=== PATIENT | female | born 1935 | race Caucasian/White ===

== ENCOUNTER 2018-04-04 06:00 | Inpatient (IN) | payer MEDICARE, BC ==
[~2018-04-04 06:00] MED LIST: Acetaminophen 325 MG Tab PO SCH; Lactated Ringers 1,000 ML IV SCH; Lidocaine 1%/Sod Bicarbonate in NS 8.4% 1 ML Syringe IDERM PRN; Pregabalin 25 MG Cap PO SCH; Sodium Chloride 0.9% 10 ML Syringe FLUSH PRN; oxyCODONE ER 10 MG TAB.ER PO SCH
[2018-04-04] MEDS ORDERED: Iodine/Sodium Iodide 2% Tincture 30 ML Bottle ONE (06:07)
[2018-04-04] MEDS ORDERED: fentaNYL 100 MCG/2 ML SDV ONE (06:22)
[2018-04-04] MEDS ORDERED: Propofol 200 MG/20 ML SDV ONE (06:22)
[2018-04-04] MEDS ORDERED: ceFAZolin 1 GM Vial ONE (06:25)
[2018-04-04] MEDS ORDERED: Bupivacaine 0.75% 30 ML SDV ONE (06:27)
[2018-04-04] MEDS ORDERED: EPINEPHrine 1 MG/ML SDV ONE (06:37)
[2018-04-04] MEDS ORDERED: Ropivacaine 0.5% 5 MG/ML 30 ML SDV ONE (06:37)
[2018-04-04] MEDS ORDERED: Bisacodyl 5 MG Tab PO PRN (06:42)
[2018-04-04] MEDS ORDERED: Naloxone 0.4 MG/ML SDV IVPUSH PRN (06:42)
[2018-04-04] MEDS ORDERED: Sennosides 8.6 MG Tab PO PRN (06:42)
[2018-04-04] MEDS ORDERED: Ondansetron 4 MG/2 ML SDV IVPUSH PRN ×2 (06:42→07:58)
[2018-04-04] MEDS ORDERED: Magnesium Hydroxide 400 MG/5 ML Susp 30 ML Cup PO PRN (06:42)
[2018-04-04] MEDS ORDERED: Morphine 2 MG/ML Syringe IVPUSH PRN (06:42)
[2018-04-04] MEDS ORDERED: ceFAZolin 2 GM in Premix Bag 1 BAG IV SCH (07:00)
[2018-04-04] MEDS: Morphine 8 MG, EPINEPHrine 0.3 MG, Cefuroxime 750 MG, Ketorolac 30 MG, Sodium Chloride ... ONE ×15 (07:52→10:30)
[2018-04-04] MEDS: Vancomycin 1 GM SDV ONE ×2 (07:52→08:14)
[2018-04-04] MEDS: ceFAZolin 1 GM Vial ONE ×2 (07:52→08:09)
[2018-04-04] MEDS: Bupivacaine 0.25% 30 ML SDV ONE ×2 (07:52→08:12)
--- NOTE | 2018-04-04 07:54 | PCM.PREANE ---
Preanesthetic Assessment - Procedure Proposed Procedure: Left TKA - Anesthesia/Transfusion/Family Hx Anesthesia History: Prior Anesthesia Without Reaction Family History of Anesthesia Reaction: No Transfusion History: No Prior Transfusion(s) Additional History: History of lumbar spine fusion with no existing radiculopathies. - Review of Systems General: No Symptoms Pulmonary: No Symptoms Cardiovascular: Other (HTN, HLD, DVT 2015, ) Gastrointestinal: No Symptoms Neurological: No Symptoms Other: Reports: Thyroid Problems (hypothyroid) - Physical Assessment NPO Status Date: 04/03/18 NPO Status Time: 21:00 O2 Sat by Pulse Oximetry: 96 Respiratory Rate: 16 Vital Signs: Last Vital Signs Temp 37.1 C 04/04/18 06:00 Pulse 77 04/04/18 06:00 Resp 16 04/04/18 06:00 BP 156/86 H 04/04/18 06:00 Pulse Ox 96 04/04/18 06:00 Height: 1.63 m Weight: 80.286 kg ASA Class: 2 Mental Status: Alert & Oriented x3 Airway Class: Mallampati = 4 (Patient expressed with her back surgery, the anesthesiologist had "a lot of problems placing the tube" She was told the she has a very narrow airway and was sent home with a letter regarding her difficult airway. She did not bring the letter today.) Dentition: Reports: Normal Dentition Thyro-Mental Finger Breadths: 3 Mouth Opening Finger Breadths: 3 ROM/Head Extension: Full Lungs: Clear to Auscultation, Normal Respiratory Effort Cardiovascular: Regular Rate, Regular Rhythm - Lab Values: Laboratory Last Values PT 10.5 SECONDS (9.5-12.1) 04/04/18 06:20 INR 0.96 04/04/18 06:20 MRSA (PCR) Negative 03/23/18 14:40 - Allergies Allergies/Adverse Reactions: Allergies Allergy/AdvReac Type Severity Reaction Status Date / Time nabumetone [From Relafen] Allergy Rash Verified 04/01/18 14:16 oxaprozin [From Daypro] Allergy Edema Verified 04/01/18 14:16 raloxifene [From Evista] Allergy Edema Verified 04/01/18 14:16 Sulfa (Sulfonamide Allergy Cannot Verified 04/01/18 14:16 Antibiotics) Remember sulfamethoxazole Allergy Rash Verified 04/01/18 14:16 [From Bactrim] - Blood Blood Available: No Product(s) Available: None - Anesthesia Plan Pre-Op Medication Ordered: None - Acknowledgements Anesthesia Type Planned: Spinal (with post op adductor canal block ) Pt an Appropriate Candidate for the Planned Anesthesia: Yes Alternatives and Risks of Anesthesia Discussed w Pt/Guardian: Yes Pt/Guardian Understands and Agrees with Anesthesia Plan: Yes PreAnesthesia Questionnaire HEENT History: Reports: Cataract, Glaucoma, Hard of Hearing Cardiovascular History: Reports: Blood Clots/VTE/DVT, High Cholesterol, Hypertension Respiratory History: Reports: None Gastrointestinal History: Reports: Other (See Below) Other Gastrointestinal History: narrow espohgus Genitourinary History: Reports: None SSIS ARCHITECT History: Reports: Musculoskeletal History: Reports: None Psychiatric History: Reports: None Endocrine/Metabolic History: Reports: None, Hypothyroidism Other Hematologic History: blood clot in the left leg Immunologic History: Reports: None Oncologic (Cancer) History: Reports: None Dermatologic History: Reports: None - Past Surgical History Head Surgeries/Procedures: Reports: None HEENT Surgical History: Reports: Eye Surgery, Tonsillectomy Cardiovascular Surgical History: Reports: None Respiratory Surgical History: Reports: None GI Surgical History: Reports: None Female Surgical History: Reports: Hysterectomy Male Surgical History: Reports: None Endocrine Surgical History: Reports: None Neurological Surgical History: Reports: Lumbar Spine Musculoskeletal Surgical History: Reports: None Oncologic Surgical History: Reports: None Dermatological Surgical History: Reports: None - SUBSTANCE USE Smoking Status *Q: Former Smoker Second Hand Smoke Exposure: No Recreational Drug Use History: No - HOME MEDS Home Medications: Home Meds Cholecalciferol (Vitamin D3) [Vitamin D3] 1,000 unit PO DAILY 10/02/15 [History] Fish Oil/Baxter-3 Fatty Acids [Fish Oil 1,000 MG] 1,000 mg PO DAILY 10/02/15 [ History] Folic Acid 2 mg PO DAILY 10/02/15 [History] Latanoprost [Xalatan 0.005% Ophth Soln] 1 drop EYEBOTH BID 10/02/15 [History] Levothyroxine 125 mcg PO DAILY 10/02/15 [History] atorvaSTATin [Lipitor] 10 mg PO DAILY 10/02/15 [History] Acetaminophen [Tylenol Extra Strength] 1,000 mg PO Q6H PRN 04/01/18 [History] Aspirin [Halfprin] 81 mg PO DAILY 04/01/18 [History] - CURRENT (IN HOUSE) MEDS Current Meds: Current Medications Acetaminophen (Tylenol) 975 mg PO ONETIME [facility] Last Admin: 04/04/18 07:01 Dose: 975 mg Bisacodyl (Dulcolax) 5 mg PO DAILY PRN PRN Reason: Constipation Docusate Sodium (Colace) 100 mg PO BID [facility] Famotidine (Pepcid) 20 mg PO Q12H [facility] Lactated Ringer's (Ringers, Lactated) 1,000 mls @ 125 mls/hr IV ASDIRECTED [facility] Last Admin: 04/04/18 06:20 Dose: 125 mls/hr Cefazolin Sodium/Dextrose 2 gm (/ Premix) 50 mls @ 100 mls/hr IV Q8H [facility] Stop: 04/04/18 23:29 Lidocaine/Sodium Bicarbonate (Buffered Lidocaine 1% In Ns 8.4%) 0.25 ml IDERM ONETIME PRN PRN Reason: Prior to IV Start Last Admin: 04/04/18 06:19 Dose: 0.25 ml Magnesium Hydroxide (Milk Of Magnesia) 30 ml PO BID PRN PRN Reason: Constipation Morphine Sulfate (Morphine) 2 mg IVPUSH Q2H PRN PRN Reason: Breakthrough Pain Naloxone HCl (Narcan) 0.1 mg IVPUSH Q5M PRN PRN Reason: Oversedation Ondansetron HCl (Zofran) 4 mg IVPUSH Q6H PRN PRN Reason: Nausea/Vomiting Oxycodone HCl (Oxycontin) 10 mg PO ONETIME [facility] Last Admin: 04/04/18 07:01 Dose: 10 mg Oxycodone/Acetaminophen (Percocet 325-5 Mg) 1 - 2 tab PO Q4H PRN PRN Reason: Pain Pregabalin (Lyrica) 50 mg PO ONETIME [facility] Last Admin: 04/04/18 07:01 Dose: 50 mg Rivaroxaban (Xarelto) 10 mg PO DAILY [facility] Senna (Senna) 8.6 mg PO BID PRN PRN Reason: Constipation Sodium Chloride (Saline Flush) 10 ml FLUSH ASDIRECTED PRN PRN Reason: Keep Vein Open Discontinued Medications Bupivacaine HCl (Marcaine 0.25%) Confirm Administered Dose 30 ml .ROUTE .STK- MED ONE Stop: 04/04/18 06:08 Bupivacaine HCl (Sensorcaine-Mpf 0.75%) Confirm Administered Dose 30 ml .ROUTE .STK-MED ONE Stop: 04/04/18 06:28 Cefazolin Sodium (Ancef) Confirm Administered Dose 2 gm .ROUTE .STK-MED ONE Stop: 04/04/18 06:08 Cefazolin Sodium (Ancef) Confirm Administered Dose 2 gm .ROUTE .STK-MED ONE Stop: 04/04/18 06:26 Morphine Sulfate 8 mg/Epinephrine HCl 0.3 mg/Cefuroxime Sodium 750 mg/Ketorolac Tromethamine 30 mg/Sodium Chloride 27.9 ml 0 mg .XX ONETIME ONE Stop: 04/04/18 06:38 Epinephrine HCl (Adrenalin) Confirm Administered Dose 1 mg .ROUTE .STK-MED ONE Stop: 04/04/18 06:38 Fentanyl (Sublimaze) Confirm Administered Dose 100 mcg .ROUTE .STK-MED ONE Stop: 04/04/18 06:23 Iodine (Iodine 2% Mild Tincture) Confirm Administered Dose 30 ml .ROUTE .STK- MED ONE Stop: 04/04/18 06:08 Propofol (Diprivan 20 Ml) Confirm Administered Dose 400 mg .ROUTE .STK-MED ONE Stop: 04/04/18 06:23 Ropivacaine (Naropin 0.5%) Confirm Administered Dose 30 ml .ROUTE .STK-MED ONE Stop: 04/04/18 06:38 Tranexamic Acid (Cyklokapron) Confirm Administered Dose 1,000 mg .ROUTE .STK- MED ONE Stop: 04/04/18 06:08 Vancomycin HCl (Vancomycin) Confirm Administered Dose 1 gm .ROUTE .STK-MED ONE Stop: 04/04/18 06:08
[2018-04-04] MEDS ORDERED: Meperidine PF 50 MG/ML Syringe IVPUSH PRN (07:58)
[2018-04-04] MEDS ORDERED: diphenhydrAMINE 50 MG/ML SDV IVPUSH PRN (07:58)
[2018-04-04] MEDS ORDERED: fentaNYL 100 MCG/2 ML SDV IVPUSH PRN (07:58)
[2018-04-04] MEDS ORDERED: Ondansetron 4 MG/2 ML SDV ONE (08:31)
[2018-04-04] MEDS ORDERED: Ketorolac 30 MG/ML SDV ONE (08:38)
--- NOTE | 2018-04-04 08:53 | PCM.POSTAN ---
POST ANESTHESIA ASSESSMENT - MENTAL STATUS Mental Status: Alert, Oriented - VITAL SIGNS Pulse Rate: 66 SaO2: 95 Resp Rate: 19 Blood Pressure: 120/62 Temperature: 36.4 C - RESPIRATORY Respiratory Status: Respiratory Rate WNL, Airway Patent, O2 Saturation Stable, Supplemental Oxygen - CARDIOVASCULAR CV Status: Pulse Rate WNL, Blood Pressure Stable - GASTROINTESTINAL GI Status: No Symptoms - PAIN Pain Score: 0 - POST OP HYDRATION Hydration Status: Adequate & Stable
--- NOTE | 2018-04-04 09:22 | PCM.SN ---
- Free Text/Narrative Note: Left selective femoral nerve block at the adductor canal for post-procedure pain control Time Out: 900 Start: 904 End: 907 Chart reviewed. Consent signed. Questions answered. Appropriate monitors applied. Time out performed. Left mid-shaft femur evaluated with ultrasound. Scanning medially femur, I was able to identify the femoral artery in the adductor canal. The saphenous nerve was lateral to the artery. The skin was prepped lateral to the ultrasound probe with chlorahexadine. The 21ga 4 insulated block needle was inserted under direct ultrasound guidance into the adductor canal. 20mL of 0.5% ropivacaine with 1:200,000 epinephrine was injected cirmcumferentially about the nerve with intermittent negative aspiration every 5mL. Patient tolerated the procedure well. See picture on progress note and vital signs on nurses notes. Block completed postoperatively. Naveen Luis CRNA
--- NOTE | 2018-04-04 09:45 | CR ---
Left knee: AP and lateral views of the left knee were obtained. Comparison: Prior left knee exam of 09/20/12. Knee prosthesis is seen. Components are aligned. Underlying bony structures are intact. Soft tissue air is noted from the surgical procedure. Impression: 1. Satisfactory postop radiographic appearance of recently placed left knee prosthesis. Diagnostic code #2
[2018-04-04] MEDS: Levothyroxine 125 MCG Tab PO SCH (10:43)
[2018-04-04] MEDS: Cholecalciferol (Vitamin D3) 1,000 Unit Tab PO SCH (10:44)
[2018-04-04] MEDS: Simvastatin 10 MG Tab PO SCH (10:44)
[2018-04-04] MEDS: Folic Acid 1 MG Tab PO SCH (10:44)
[2018-04-04] MEDS: Famotidine 20 MG Tab PO SCH ×2 (10:45→18:30)
[2018-04-04] MEDS: LATANOPROST 0.005% EYEBOTH SCH ×2 (10:46→20:18)
--- NOTE | 2018-04-04 10:52 | PCM.OPNOTE ---
- General Post-Op/Procedure Note Date of Surgery/Procedure: 04/04/18 Operative Procedure(s): left total knee arthroplasty Pre Op Diagnosis: left knee osteoarthrosis Post-Op Diagnosis: Same Anesthesia Technique: Local, MAC, Spinal Primary Surgeon: Alexi Peng Anesthesia Provider: Naveen Luis Parimutuel Cashier: Hien Sosa Parimutuel Cashier: Rody Arguelles EBGuerita in mLs: 10 Complications: None Condition: Good Free Text/Narrative:: Intake & Output 04/03/18 04/04/18 04/04/18 22:59 06:59 14:59 Intake Total 100 Output Total 500 Balance -400
--- NOTE | 2018-04-04 11:43 | OR ---
DATE OF OPERATION: 04/04/2018 SURGEON: Alexi Peng MD OPERATION PERFORMED: Left total knee arthroplasty. PREOPERATIVE DIAGNOSIS: Left knee osteoarthrosis. POSTOPERATIVE DIAGNOSIS: Left knee osteoarthrosis. ANESTHESIA: Local MAC with spinal. ANESTHESIA PROVIDER: Naveen Luis. ASSISTANTS: 1. Hien Sosa PA-C. 2. Rody Arguelles LPN. ESTIMATED BLOOD LOSS: 10 mL. COMPLICATIONS: None. CONDITION: Stable. IMPLANTS: 1. Sola size 5 PS femur. 2. Sola size 5 [place] tibial baseplate. 3. Sola size 5 9-mm PS X3 polyethylene. 4. [place] size 5 29 x 9 mm asymmetric patella. DESCRIPTION OF PROCEDURE: The patient was identified in the preop holding area. Proper site was marked and identified by the surgeon. The patient was taken back to the operating theater. After adequate anesthesia, the patient's left lower extremity had a nonsterile tourniquet applied and it was then sterilely prepped and draped in the usual sterile fashion. OR timeout was performed. The patient received 2 grams IV Ancef. At this time, left lower extremity was exsanguinated. Tourniquet was insufflated to 300 mmHg. Standard medial parapatellar incision was made. Medial parapatellar arthrotomy was created. Deep fibers of the MCL were raised and anterior fat pad was resected. At this time, attention was turned to the patella. Patella measured a 22 and it was resected to a 13 for a 29 x 9 mm patella. Drill holes were then drilled and found to be in adequate position. The drill was then drilled in the distal femur and the intramedullary distal femoral cutting guide was then placed. 10 mm was resected off the distal femur and was found to be an adequate resection. Sizing guide was placed. It was found to be a [place] size 5 PS femur that was shown on the implant record at the beginning of this dictation. The drill holes were drilled for the epicondylar axis using Whitesides line and epicondyles as reference. At this time, the 4-in-1 cutting block was placed. An anterior posterior and anterior and posterior chamfer cuts were then completed. The correct size box cut was then placed and the box cut was completed and found to be an adequate resection. Attention was turned to the tibia. The posterior medial lateral retractors were placed. The extramedullary tibial guide was placed. It was placed in the old footprint of the ACL. It was aligned with the center of the ankle and 0 degrees of slope, 9 mm was then resected off the unaffected lateral side. There was found to be an acceptable reduction. At this time, posterior osteophytes were removed along with medial and lateral meniscus. A trial implant was placed with a correct sized tibia that was mentioned at the beginning of the dictation. A Sola size 5 9-mm PS X3 polyethylene was then placed. The patient's knee was brought through range of motion. The patella was tracking centrally and was stable to varus and valgus stress. Alignment was found to be roughly at 0 degrees. At this time, cement was mixed on the back table. The tibia was stamped and drilled in proper rotation. All cut surfaces were irrigated with pulse lavage irrigation with Ancef and then completely dried. Once this was completed, then the cement was ready. The universal tibial base plate was cemented in place. Next, the Sola size 5 PS femur cemented into place, and the [place]ome size 5 9-mm PS X3 polyethylene was placed. The patient's knee was brought into full extension. Excess cement was removed. The patella was then cemented in place at this time. Tourniquet was deflated. One liter dilute Betadine solution was irrigated through the knee along with 3 L of pulse lavage irrigation with Ancef. Periarticular injection was then completed. The patient's knee was brought through a range of motion. Once the cement had time to set up and it was found to be stable to varus valgus stress, the patella was tracking centrally with full range of motion. At this time, a #2 barbed suture was used for closure of the medial parapatellar arthrotomy. Topical tranexamic acid was placed. 2-0 Vicryl was used subcutaneously, a running 3-0 Monocryl was used subcuticularly. The patient tolerated the procedure well and was sent to the PACU in stable condition. MMODAL /[id number]
[2018-04-04] MEDS: Acetaminophen/oxyCODONE 325-5 MG Tab PO PRN ×3 (14:42→22:39)
[2018-04-04] MEDS: ceFAZolin 2 GM in Premix Bag 1 BAG IV SCH ×2 (14:43→22:35)
[2018-04-04] MEDS: Docusate Sodium 100 MG Cap PO SCH (20:18)
[2018-04-05] MEDS: Acetaminophen/oxyCODONE 325-5 MG Tab PO PRN ×4 (03:41→16:21)
[2018-04-05] MEDS: ceFAZolin 2 GM in Premix Bag 1 BAG IV SCH (06:06)
[2018-04-05] MEDS: Levothyroxine 125 MCG Tab PO SCH (06:06)
[2018-04-05] MEDS: Famotidine 20 MG Tab PO SCH ×2 (06:06→22:40)
--- NOTE | 2018-04-05 07:00 | PCM.CONS ---
H&P History of Present Illness - General Date of Service: 04/05/18 Admit Problem/Dx: Admission Diagnosis/Problem Admission Diagnosis/Problem Osteoarthritis of knee Source of Information: Patient, Old Records, Provider, RN, RN Notes Reviewed History Limitations: Reports: No Limitations - History of Present Illness Initial Comments - Free Text/Narative: Pam Murphy is a 83 yo female patient of Dr. Peng who is post-operative day 1 of left TKA. Hospital medicine was consulted for post-operative medical care. At this time she is sitting in the chair. Pain is controlled. She denies any chest pain, shortness of breath, or palpitations. She did have some nausea and vomiting which resolved with a scopolamine patch and zofran. She also had some difficulty with urination. She carries a history of: Hypothyroid, HLD, HTN, Phlebitis with DVT in 2014, osteopenia, C. difficile infection in 2001 with stool transfer, hx/o of DVT in September 2015 and October 2015. She is a former smoker. She is a full code. Her primary care provider is Dr. Dandre Sibley. Left Knee Pain Score (Numeric/FACES): 3 - Related Data Allergies/Adverse Reactions: Allergies Allergy/AdvReac Type Severity Reaction Status Date / Time nabumetone [From Relafen] Allergy Rash Verified 04/01/18 14:16 oxaprozin [From Daypro] Allergy Edema Verified 04/01/18 14:16 raloxifene [From Evista] Allergy Edema Verified 04/01/18 14:16 Sulfa (Sulfonamide Allergy Cannot Verified 04/01/18 14:16 Antibiotics) Remember sulfamethoxazole Allergy Rash Verified 04/01/18 14:16 [From Bactrim] Home Medications: Home Meds Cholecalciferol (Vitamin D3) [Vitamin D3] 1,000 unit PO DAILY 10/02/15 [History] Folic Acid 2 mg PO DAILY 10/02/15 [History] Latanoprost [Xalatan 0.005% Ophth Soln] 1 drop EYEBOTH BID 10/02/15 [History] Levothyroxine 125 mcg PO DAILY 10/02/15 [History] atorvaSTATin [Lipitor] 10 mg PO DAILY 10/02/15 [History] Aspirin [Halfprin] 81 mg PO DAILY 04/01/18 [History] Acetaminophen [Tylenol Extra Strength] 1,000 mg PO Q6H PRN #0 04/04/18 [Rx] Acetaminophen/oxyCODONE [Percocet 325-5 MG] 1 - 2 tab PO Q6H PRN #60 tablet 09/11 [Rx] Bisacodyl [Dulcolax] 5 mg PO DAILY PRN tablet 04/04/18 [Rx] Docusate Sodium [Colace] 100 mg PO BID cap 04/04/18 [Rx] Famotidine [Pepcid] 20 mg PO Q12H tablet 04/04/18 [Rx] Magnesium Hydroxide [Milk of Magnesia] 30 ml PO BID PRN cup 04/04/18 [Rx] Rivaroxaban [Xarelto] 10 mg PO DAILY #42 tablet 04/04/18 [Rx] Sennosides [Senna] 8.6 mg PO BID PRN tablet 04/04/18 [Rx] Ondansetron [Ondansetron ODT] 4 mg PO Q6HR PRN 04/05/18 [History] Past Medical History HEENT History: Reports: Cataract, Glaucoma, Hard of Hearing Cardiovascular History: Reports: Blood Clots/VTE/DVT, High Cholesterol, Hypertension Respiratory History: Reports: None Gastrointestinal History: Reports: Other (See Below) Other Gastrointestinal History: narrow espohgus Genitourinary History: Reports: None ANIMATION ARTIST History: Reports: Musculoskeletal History: Reports: None Psychiatric History: Reports: None Endocrine/Metabolic History: Reports: None, Hypothyroidism Other Hematologic History: blood clot in the left leg Immunologic History: Reports: None Oncologic (Cancer) History: Reports: None Dermatologic History: Reports: None - Past Surgical History Head Surgeries/Procedures: Reports: None HEENT Surgical History: Reports: Eye Surgery, Tonsillectomy Cardiovascular Surgical History: Reports: None Respiratory Surgical History: Reports: None GI Surgical History: Reports: None Female Surgical History: Reports: Hysterectomy Male Surgical History: Reports: None Endocrine Surgical History: Reports: None Neurological Surgical History: Reports: Lumbar Spine Musculoskeletal Surgical History: Reports: None Oncologic Surgical History: Reports: None Dermatological Surgical History: Reports: None Social & Family History - Tobacco Use Smoking Status *Q: Former Smoker Used Tobacco, but Quit: Yes Month/Year Tobacco Last Used: 1979 Second Hand Smoke Exposure: No - Caffeine Use Caffeine Use: Reports: Coffee - Recreational Drug Use Recreational Drug Use: No H&P Review of Systems - Review of Systems: Review Of Systems: See Below General: Reports: No Symptoms HEENT: Reports: No Symptoms Pulmonary: Reports: No Symptoms Cardiovascular: Reports: No Symptoms Gastrointestinal: Reports: No Symptoms Genitourinary: Reports: No Symptoms Musculoskeletal: Reports: Joint Pain Skin: Reports: No Symptoms Psychiatric: Reports: No Symptoms Neurological: Reports: No Symptoms Hematologic/Lymphatic: Reports: No Symptoms Immunologic: Reports: No Symptoms Exam - Exam Exam: See Below - Vital Signs Vital Signs: Last Vital Signs Temp 97.9 F 04/04/18 15:32 Pulse 59 L 04/04/18 20:10 Resp 16 04/04/18 20:10 BP 125/60 04/04/18 20:10 Pulse Ox 92 L 04/04/18 20:10 Weight: 177 lb - Exam Quality Assessment: DVT Prophylaxis General: Alert, Oriented, Cooperative. No: Mild Distress HEENT: Conjunctiva Clear, EACs Clear, EOMI, Hearing Intact, Mucosa Moist & Nicholls , Posterior Pharynx Clear, PERRLA Neck: Supple, Trachea Midline. No: JVD Lungs: Clear to Auscultation, Normal Respiratory Effort Cardiovascular: Regular Rate, Regular Rhythm GI/Abdominal Exam: Normal Bowel Sounds, Soft, Non-Tender, No Organomegaly, No Distention, No Abnormal Bruit, No Mass, Pelvis Stable (Female) Exam: Deferred Rectal (Female) Exam: Deferred Back Exam: Normal Inspection, Full Range of Motion, NT Extremities: No Pedal Edema, Normal Capillary Refill, Leg Pain, Limited Range of Motion, Other (Bandage in place on left knee. Bandage is dry and intact. No drainage. ) Peripheral Pulses: 2+: Radial (L), Radial (R), Posterior Tibial (L), Posterior Tibial (R), Dorsalis Pedis (L), Dorsalis Pedis (R) Skin: Warm, Dry, Intact Neurological: Cranial Nerves Intact (grossly ) Neuro Extensive - Mental Status: Alert, Oriented x3, Normal Mood/Affect, Normal Cognition Neuro Extensive - Motor, Sensory, Reflexes: CN II-XII Intact, Normal Gait, Normal Reflexes Psychiatric: Alert, Normal Affect, Normal Mood - Patient Data Lab Results Last 24 hrs: Laboratory Results - last 24 hr 04/05/18 Range/Units 06:18 WBC 9.76 (3.98-10.04) K/mm3 RBC 4.04 (3.98-5.22) M/mm3 Hgb 12.7 (11.2-15.7) gm/L Hct 38.1 (34.1-44.9) % MCV 94.3 (79.4-94.8) fl MCH 31.4 (25.6-32.2) pg MCHC 33.3 (32.2-35.5) g/dl RDW Std Deviation 43.5 (36.4-46.3) fL Plt Count 169 L (182-369) K/mm3 MPV 9.8 (9.4-12.3) fl Result Diagrams: 04/05/18 06:18 04/05/18 06:18 Consult PN Assessment/Plan POD#: 1 Procedures: Procedures DXA BONE DENSITY AXIAL (02/06/16) EMERGENCY DEPT VISIT (10/02/15) (1) S/P total knee arthroplasty SNOMED Code(s): 0000847521970, 614963030, 0064695081091 Code(s): Z96.659 - PRESENCE OF UNSPECIFIED ARTIFICIAL KNEE JOINT Priority: High Current Visit: Yes Qualifiers: Laterality: left Qualified Code(s): Z96.652 - Presence of left artificial knee joint (2) Osteoarthritis SNOMED Code(s): 934914330 Code(s): M19.90 - UNSPECIFIED OSTEOARTHRITIS, UNSPECIFIED SITE Priority: High Current Visit: Yes Qualifiers: Osteoarthritis location: knee Osteoarthritis type: primary Laterality: left Qualified Code(s): M17.12 - Unilateral primary osteoarthritis, left knee (3) HLD (hyperlipidemia) SNOMED Code(s): 66769472 Code(s): E78.5 - HYPERLIPIDEMIA, UNSPECIFIED Priority: Medium Current Visit: No Qualifiers: Hyperlipidemia type: unspecified Qualified Code(s): E78.5 - Hyperlipidemia , unspecified (4) HTN (hypertension) SNOMED Code(s): 42576957 Code(s): I10 - ESSENTIAL (PRIMARY) HYPERTENSION Priority: Medium Current Visit: No Qualifiers: Hypertension type: unspecified Qualified Code(s): I10 - Essential (primary ) hypertension (5) Hypothyroidism SNOMED Code(s): 69668254 Code(s): E03.9 - HYPOTHYROIDISM, UNSPECIFIED Priority: Medium Current Visit: No Qualifiers: Hypothyroidism type: unspecified Qualified Code(s): E03.9 - Hypothyroidism , unspecified (6) H/O Clostridium difficile infection SNOMED Code(s): 984144354, 654916911 Code(s): Z86.19 - PERSONAL HISTORY OF OTHER INFECTIOUS AND PARASITIC DISEASES Priority: Medium Current Visit: No (7) History of venous thromboembolism SNOMED Code(s): 075117447 Code(s): Z86.718 - PERSONAL HISTORY OF OTHER VENOUS THROMBOSIS AND EMBOLISM Priority: Medium Current Visit: No (8) Nausea & vomiting SNOMED Code(s): 87993817 Code(s): R11.2 - NAUSEA WITH VOMITING, UNSPECIFIED Priority: Medium Current Visit: Yes Qualifiers: Vomiting type: unspecified Vomiting Intractability: unspecified Qualified Code(s): R11.2 - Nausea with vomiting, unspecified Problem List Initiated/Reviewed/Updated: Yes Plan: I/P: Acute: S/P left total knee arthroplasty - post-operative day 1 -DVT prophylaxis and pain management per primary care team -PT/OT -IS/RT -Monitor oxygen saturation -Titrate oxygen as needed -Vital signs stable -Monitor labs -Pre-operative Hgb was 14.7, now 12.7 -Preo-operative GFR was 68, now 60 Osteoarthritis of left knee -Pain management per primary care team Nausea and vomiting -Resovled with scopolamine patch and zofran -Home zofran Rx Urinary retention -Has had minimal output since surgery ("only drops") -Nursing reports almost 1L PO intake -20mg lasix given -Patient reports feeling uncomfortable -Nursing to straight cath patient per protocol Chronic: HLD HTN Hypothyroid Phlebitis with DVT in 2014 Hx/o C. 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 Her PCP is Dr Dandre Sibley Thank you for allowing us to participate in the care of this patient!! Overall Pam is doing quite well, although she still hasn't urinated. She has been working with PT/OT. Labs look good, as do vital signs. She has been ambulating. She will be cleared for discharge pending ability to urinate. Requesting Provider: Dr. Peng Date Consult Requested: 04/04/18 Reason for Consult: Post-operative medical care Patient History Reviewed: Yes Admission H&P Reviewed: Yes Time Spent (in minutes): 45
--- NOTE | 2018-04-05 08:08 | PCM.SURGPN ---
- General Info Date of Service: 04/05/18 POD#: 1 Functional Status: Reports: Pain Controlled, Tolerating Diet, Ambulating, Urinating, Incentive Spirometry, Other (The pt states she ambulated in her room yesterday and this morning. The pt's daughter thinks the pt is doing well.) - Patient Data Vitals - Most Recent: Last Vital Signs Temp 98.6 F 04/05/18 03:45 Pulse 68 04/05/18 03:45 Resp 14 04/05/18 03:45 BP 111/56 L 04/05/18 03:45 Pulse Ox 93 L 04/05/18 06:39 Weight - Most Recent: 177 lb I&O - Last 24 Hours: Intake & Output 04/04/18 04/05/18 04/05/18 22:59 06:59 14:59 Intake Total 760 200 Output Total 350 0 Balance 410 200 Lab Results Last 24 Hrs: Laboratory Results - last 24 hr 04/05/18 04/05/18 Range/Units 06:18 06:18 WBC 9.76 (3.98-10.04) K/mm3 RBC 4.04 (3.98-5.22) M/mm3 Hgb 12.7 (11.2-15.7) gm/L Hct 38.1 (34.1-44.9) % MCV 94.3 (79.4-94.8) fl MCH 31.4 (25.6-32.2) pg MCHC 33.3 (32.2-35.5) g/dl RDW Std Deviation 43.5 (36.4-46.3) fL Plt Count 169 L (182-369) K/mm3 MPV 9.8 (9.4-12.3) fl Sodium 140 (136-145) mEq/L Potassium 3.9 (3.5-5.1) mEq/L Chloride 106 (98-107) mEq/L Carbon Dioxide 24 (21-32) mEq/L Anion Gap 13.9 (5-15) BUN 15 (7-18) mg/dL Creatinine 0.9 (0.55-1.02) mg/dL Est Cr Clr Drug Dosing 39.46 mL/min Estimated GFR (MDRD) 60 (>60) mL/min BUN/Creatinine Ratio 16.7 (14-18) Glucose 113 (83-115) mg/dL Calcium 8.3 L (8.5-10.1) mg/dL Total Bilirubin 0.8 (0.2-1.0) mg/dL AST 15 (15-37) U/L ALT 17 (14-59) U/L Alkaline Phosphatase 60 (46-116) U/L Total Protein 5.8 L (6.4-8.2) g/dl Albumin 2.9 L (3.4-5.0) g/dl Globulin 2.9 gm/dL Albumin/Globulin Ratio 1.0 (1-2) Med Orders - Current: Current Medications Bisacodyl (Dulcolax) 5 mg PO DAILY PRN PRN Reason: Constipation Cholecalciferol (Vitamin D3) 1,000 units PO DAILY [facility] Last Admin: 04/04/18 10:44 Dose: 1,000 units Diphenhydramine HCl (Benadryl) 25 mg IVPUSH Q6H PRN PRN Reason: Pruritis Docusate Sodium (Colace) 100 mg PO BID [facility] Last Admin: 04/04/18 20:18 Dose: 100 mg Famotidine (Pepcid) 20 mg PO Q12H [facility] Last Admin: 04/05/18 06:06 Dose: 20 mg Folic Acid (Folic Acid) 2 mg PO DAILY [facility] Last Admin: 04/04/18 10:44 Dose: 2 mg Latanoprost (Xalatan 0.005% Ophth Soln) 0 ml EYEBOTH BID [facility] Last Admin: 04/04/18 20:18 Dose: 1 drop Levothyroxine Sodium (Levothyroxine) 125 mcg PO ACBRK [facility] Last Admin: 04/05/18 06:06 Dose: 125 mcg Magnesium Hydroxide (Milk Of Magnesia) 30 ml PO BID PRN PRN Reason: Constipation Morphine Sulfate (Morphine) 2 mg IVPUSH Q2H PRN PRN Reason: Breakthrough Pain Naloxone HCl (Narcan) 0.1 mg IVPUSH Q5M PRN PRN Reason: Oversedation Ondansetron HCl (Zofran) 4 mg IVPUSH Q6H PRN PRN Reason: Nausea/Vomiting Ondansetron HCl (Zofran) 4 mg IVPUSH ONETIME PRN PRN Reason: Nausea/Vomiting Oxycodone/Acetaminophen (Percocet 325-5 Mg) 1 - 2 tab PO Q4H PRN PRN Reason: Pain Last Admin: 04/05/18 07:47 Dose: 2 tab Rivaroxaban (Xarelto) 10 mg PO DAILY [facility] Senna (Senna) 8.6 mg PO BID PRN PRN Reason: Constipation Simvastatin (Zocor) 10 mg PO DAILY [facility] Last Admin: 04/04/18 10:44 Dose: 10 mg Sodium Chloride (Saline Flush) 10 ml FLUSH ASDIRECTED PRN PRN Reason: Keep Vein Open Discontinued Medications Acetaminophen (Tylenol) 975 mg PO ONETIME [facility] Last Admin: 04/04/18 07:01 Dose: 975 mg Bupivacaine HCl (Marcaine 0.25%) Confirm Administered Dose 30 ml .ROUTE .STK- MED ONE Stop: 04/04/18 06:08 Last Admin: 04/04/18 08:12 Dose: 30 ml Bupivacaine HCl (Sensorcaine-Mpf 0.75%) Confirm Administered Dose 30 ml .ROUTE .STK-MED ONE Stop: 04/04/18 06:28 Cefazolin Sodium (Ancef) Confirm Administered Dose 2 gm .ROUTE .STK-MED ONE Stop: 04/04/18 06:08 Last Admin: 04/04/18 08:09 Dose: 2 gm Cefazolin Sodium (Ancef) Confirm Administered Dose 2 gm .ROUTE .STK-MED ONE Stop: 04/04/18 06:26 Morphine Sulfate 8 mg/Epinephrine HCl 0.3 mg/Cefuroxime Sodium 750 mg/Ketorolac Tromethamine 30 mg/Sodium Chloride 27.9 ml 0 mg .XX ONETIME ONE Stop: 04/04/18 06:38 Last Admin: 04/04/18 10:30 Dose: Not Given Epinephrine HCl (Adrenalin) Confirm Administered Dose 1 mg .ROUTE .STK-MED ONE Stop: 04/04/18 06:38 Fentanyl (Sublimaze) Confirm Administered Dose 100 mcg .ROUTE .STK-MED ONE Stop: 04/04/18 06:23 Fentanyl (Sublimaze) 50 mcg IVPUSH Q5M PRN PRN Reason: Pain Lactated Ringer's (Ringers, Lactated) 1,000 mls @ 125 mls/hr IV ASDIRECTED [facility] Last Admin: 04/04/18 06:20 Dose: 125 mls/hr Cefazolin Sodium/Dextrose 2 gm (/ Premix) 50 mls @ 100 mls/hr IV Q8H [facility] Stop: 04/04/18 23:29 Last Admin: 04/04/18 10:45 Dose: Not Given Cefazolin Sodium/Dextrose 2 gm (/ Premix) 50 mls @ 100 mls/hr IV Q8H [facility] Stop: 04/05/18 06:59 Last Admin: 04/05/18 06:06 Dose: 100 mls/hr Iodine (Iodine 2% Mild Tincture) Confirm Administered Dose 30 ml .ROUTE .STK- MED ONE Stop: 04/04/18 06:08 Last Admin: 04/04/18 08:05 Dose: 18 ml Ketorolac Tromethamine (Toradol) Confirm Administered Dose 30 mg .ROUTE .STK- MED ONE Stop: 04/04/18 08:39 Lidocaine/Sodium Bicarbonate (Buffered Lidocaine 1% In Ns 8.4%) 0.25 ml IDERM ONETIME PRN PRN Reason: Prior to IV Start Last Admin: 04/04/18 06:19 Dose: 0.25 ml Meperidine HCl (Demerol) 12.5 mg IVPUSH ONETIME PRN PRN Reason: Shivering Ondansetron HCl (Zofran) Confirm Administered Dose 4 mg .ROUTE .STK-MED ONE Stop: 04/04/18 08:32 Oxycodone HCl (Oxycontin) 10 mg PO ONETIME [facility] Last Admin: 04/04/18 07:01 Dose: 10 mg Pregabalin (Lyrica) 50 mg PO ONETIME [facility] Last Admin: 04/04/18 07:01 Dose: 50 mg Propofol (Diprivan 20 Ml) Confirm Administered Dose 400 mg .ROUTE .STK-MED ONE Stop: 04/04/18 06:23 Ropivacaine (Naropin 0.5%) Confirm Administered Dose 30 ml .ROUTE .STK-MED ONE Stop: 04/04/18 06:38 Tranexamic Acid (Cyklokapron) Confirm Administered Dose 1,000 mg .ROUTE .STK- MED ONE Stop: 04/04/18 06:08 Last Admin: 04/04/18 08:18 Dose: 1,000 mg Vancomycin HCl (Vancomycin) Confirm Administered Dose 1 gm .ROUTE .STK-MED ONE Stop: 04/04/18 06:08 Last Admin: 04/04/18 08:14 Dose: 1 gm - Exam Wound/Incisions: Dressing Dry and Intact General: Alert, Cooperative, No Acute Distress Lungs: Normal Respiratory Effort Extremities: Other (NVS intact for LLE. Lily's negative.) - Problem List Review Problem List Initiated/Reviewed/Updated: Yes - My Orders Last 24 Hours: Active Orders 24 hr Category Date Time Status Communication Order [RC] ROUTINE Care 04/04/18 07:58 Active Notify Provider [RC] ASDIRECTED Care 04/04/18 07:58 Active Pulse Oximetry [RC] ASDIRECTED Care 04/04/18 07:58 Active Regular Diet [DIET] Diet 04/04/18 Lunch Active Cholecalciferol (Vitamin D3) [Vitamin D3] Med 04/04/18 09:00 Active 1,000 units PO DAILY Docusate Sodium [Colace] Med 04/04/18 21:00 Active 100 mg PO BID Folic Acid Med 04/04/18 09:00 Active 2 mg PO DAILY Latanoprost [Xalatan 0.005% Ophth Soln] Med 04/04/18 09:00 Active 0 ml EYEBOTH BID Levothyroxine Med 04/04/18 08:30 Active 125 mcg PO ACBRK Ondansetron [Zofran] Med 04/04/18 07:58 Active 4 mg IVPUSH ONETIME PRN Rivaroxaban [Xarelto] Med 04/05/18 09:00 Active 10 mg PO DAILY Simvastatin [Zocor] Med 04/04/18 09:00 Active 10 mg PO DAILY diphenhydrAMINE [Benadryl] Med 04/04/18 07:58 Active 25 mg IVPUSH Q6H PRN Medication Orders Bisacodyl (Dulcolax) 5 mg PO DAILY PRN PRN Reason: Constipation Cholecalciferol (Vitamin D3) 1,000 units PO DAILY [facility] Last Admin: 04/04/18 10:44 Dose: 1,000 units Diphenhydramine HCl (Benadryl) 25 mg IVPUSH Q6H PRN PRN Reason: Pruritis Docusate Sodium (Colace) 100 mg PO BID [facility] Last Admin: 04/04/18 20:18 Dose: 100 mg Famotidine (Pepcid) 20 mg PO Q12H [facility] Last Admin: 04/05/18 06:06 Dose: 20 mg Admin: 04/04/18 18:30 Dose: 20 mg Admin: 04/04/18 10:45 Dose: Not Given Folic Acid (Folic Acid) 2 mg PO DAILY [facility] Last Admin: 04/04/18 10:44 Dose: 2 mg Latanoprost (Xalatan 0.005% Ophth Soln) 0 ml EYEBOTH BID [facility] Last Admin: 04/04/18 20:18 Dose: 1 drop Admin: 04/04/18 10:46 Dose: Levothyroxine Sodium (Levothyroxine) 125 mcg PO ACBRK [facility] Last Admin: 04/05/18 06:06 Dose: 125 mcg Admin: 04/04/18 10:43 Dose: 125 mcg Magnesium Hydroxide (Milk Of Magnesia) 30 ml PO BID PRN PRN Reason: Constipation Morphine Sulfate (Morphine) 2 mg IVPUSH Q2H PRN PRN Reason: Breakthrough Pain Naloxone HCl (Narcan) 0.1 mg IVPUSH Q5M PRN PRN Reason: Oversedation Ondansetron HCl (Zofran) 4 mg IVPUSH Q6H PRN PRN Reason: Nausea/Vomiting Ondansetron HCl (Zofran) 4 mg IVPUSH ONETIME PRN PRN Reason: Nausea/Vomiting Oxycodone/Acetaminophen (Percocet 325-5 Mg) 1 - 2 tab PO Q4H PRN PRN Reason: Pain Last Admin: 04/05/18 07:47 Dose: 2 tab Admin: 04/05/18 03:41 Dose: 2 tab Admin: 04/04/18 22:39 Dose: 2 tab Admin: 04/04/18 18:30 Dose: 2 tab Admin: 04/04/18 14:42 Dose: 2 tab Rivaroxaban (Xarelto) 10 mg PO DAILY [facility] Senna (Senna) 8.6 mg PO BID PRN PRN Reason: Constipation Simvastatin (Zocor) 10 mg PO DAILY [facility] Last Admin: 04/04/18 10:44 Dose: 10 mg Sodium Chloride (Saline Flush) 10 ml FLUSH ASDIRECTED PRN PRN Reason: Keep Vein Open - Assessment Assessment (Free Text/Narrative):: POD#1 - s/p left TKA - Plan Plan (Free Text/Narrative):: 1. Discharge to home today if therapy goals met and cleared by Hospitalist service. 2. The pt's daughter will be staying with the pt this week. 3. Hgb 12.7. 4. XarelDesire jakcson, frequent mobility for VTE prophylaxis. The pt's case was discussed with Dr. Peng.
[2018-04-05] MEDS: Docusate Sodium 100 MG Cap PO SCH ×2 (08:18→22:40)
[2018-04-05] MEDS: Folic Acid 1 MG Tab PO SCH (08:18)
[2018-04-05] MEDS: Simvastatin 10 MG Tab PO SCH (08:18)
[2018-04-05] MEDS: Rivaroxaban 10 MG Tab PO SCH (08:18)
[2018-04-05] MEDS: LATANOPROST 0.005% EYEBOTH SCH ×2 (08:18→22:40)
[2018-04-05] MEDS: Cholecalciferol (Vitamin D3) 1,000 Unit Tab PO SCH (08:18)
[2018-04-05] MEDS ORDERED: Scopolamine 1.5 MG Transdermal Patch TRDERM PRN (10:01)
[2018-04-05] MEDS ORDERED: Remove Patch SCOPE PATCH TRDERM PRN (10:10)
--- NOTE | 2018-04-05 10:20 | PCM48HPAN ---
Post Anesthesia Note - EVALUATION WITHIN 48HRS OF ANESTHETIC Vital Signs in Normal Range: Yes Patient Participated in Evaluation: Yes Respiratory Function Stable: Yes Airway Patent: Yes Cardiovascular Function Stable: Yes Hydration Status Stable: Yes Pain Control Satisfactory: Yes Nausea and Vomiting Control Satisfactory: Yes Mental Status Recovered: Yes - COMMENTS/OBSERVATIONS Free Text/Narrative:: Patient denies any anesthetic complications
[2018-04-05] MEDS ORDERED: Furosemide 20 MG/2 ML VIAL IVPUSH ONE (13:01)
[2018-04-05] MEDS ORDERED: Acetaminophen/oxyCODONE 325-5 MG Tab ONE (16:16)
[2018-04-05] MEDS ORDERED: Nitrofurantoin Monohydrate/Macrocrystalline 100 MG Cap PO ONE ×2 (20:45→23:30)
[2018-04-05] MEDS: Acetaminophen 325 MG Tab PO PRN (23:55)
[2018-04-06] MEDS: Acetaminophen/oxyCODONE 325-5 MG Tab PO PRN ×2 (00:57→11:52)
--- NOTE | 2018-04-06 06:23 | PCM.CONSN ---
- General Info Date of Service: 04/06/18 Admission Dx/Problem (Free Text): Admission Diagnosis/Problem Admission Diagnosis/Problem Osteoarthritis of knee Subjective Update: In to see Pam. She is lying in bed and her daughter is at bedside. She stayed last night due to severe confusion and difficulty with urinary retention. She was catheterized several times and ultimately a goldsmith catheter was replaced. She has had great urine output and feels good. No noticeable confusion currently. Pain is controlled. Discussed plan of care with primary team. Plan is to discharge home today with daughter to care for her. She will be discharged with a goldsmith catheter in place. She is to follow-up tomorrow with PCP regarding goldsmith and an appointment has been made. Discussed changing pain medications from percocet to norco. She will be sent home with a 30 pill supply of norco and is to follow-up with Dr. Peng's office if more pain medications are needed or a change in medications is needed. Discussed possible need for balance between confusion and pain control. Family and patient voice agreement with this plan. Functional Status: Reports: Pain Controlled, Tolerating Diet, Ambulating. Denies: New Symptoms - Review of Systems General: Reports: No Symptoms. Denies: Fever, Weakness, Fatigue, Malaise HEENT: Reports: No Symptoms. Denies: Eye Pain, Sore Throat Pulmonary: Reports: No Symptoms. Denies: Shortness of Breath, Cough, Sputum Cardiovascular: Reports: No Symptoms. Denies: Chest Pain, Dyspnea on Exertion, Lightheadedness Gastrointestinal: Reports: No Symptoms. Denies: Abdominal Pain, Constipation, Diarrhea, Nausea, Vomiting Genitourinary: Reports: Retention. Denies: Dysuria, Frequency, Burning, Pain, Urgency Musculoskeletal: Reports: Joint Pain. Denies: Neck Pain, Shoulder Pain, Arm Pain, Hand Pain Skin: Reports: No Symptoms Neurological: Reports: No Symptoms. Denies: Confusion, Dizziness, Headache, Numbness, Seizure, Tingling, Weakness Psychiatric: Reports: No Symptoms - Patient Data Vitals - Most Recent: Last Vital Signs Temp 98.6 F 04/05/18 23:56 Pulse 69 04/05/18 23:56 Resp 18 04/05/18 23:56 BP 142/64 H 04/05/18 23:56 Pulse Ox 95 04/05/18 23:56 Weight - Most Recent: 177 lb I&O - Last 24 Hours: Intake & Output 04/05/18 04/05/18 04/06/18 14:59 22:59 06:59 Intake Total 300 2700 Output Total 1025 2635 Balance -725 65 Lab Results Last 24 Hours: Laboratory Results - last 24 hr 18 04/05/18 Range/Units 06:18 06:18 WBC 9.76 (3.98-10.04) K/mm3 RBC 4.04 (3.98-5.22) M/mm3 Hgb 12.7 (11.2-15.7) gm/L Hct 38.1 (34.1-44.9) % MCV 94.3 (79.4-94.8) fl MCH 31.4 (25.6-32.2) pg MCHC 33.3 (32.2-35.5) g/dl RDW Std Deviation 43.5 (36.4-46.3) fL Plt Count 169 L (182-369) K/mm3 MPV 9.8 (9.4-12.3) fl Sodium 140 (136-145) mEq/L Potassium 3.9 (3.5-5.1) mEq/L Chloride 106 (98-107) mEq/L Carbon Dioxide 24 (21-32) mEq/L Anion Gap 13.9 (5-15) BUN 15 (7-18) mg/dL Creatinine 0.9 (0.55-1.02) mg/dL Est Cr Clr Drug Dosing 39.46 mL/min Estimated GFR (MDRD) 60 (>60) mL/min BUN/Creatinine Ratio 16.7 (14-18) Glucose 113 (83-115) mg/dL Calcium 8.3 L (8.5-10.1) mg/dL Total Bilirubin 0.8 (0.2-1.0) mg/dL AST 15 (15-37) U/L ALT 17 (14-59) U/L Alkaline Phosphatase 60 (46-116) U/L Total Protein 5.8 L (6.4-8.2) g/dl Albumin 2.9 L (3.4-5.0) g/dl Globulin 2.9 gm/dL Albumin/Globulin Ratio 1.0 (1-2) Med Orders - Current: Current Medications Acetaminophen (Tylenol) 650 mg PO Q4H PRN PRN Reason: pain Last Admin: 04/05/18 23:55 Dose: 650 mg Bisacodyl (Dulcolax) 5 mg PO DAILY PRN PRN Reason: Constipation Cholecalciferol (Vitamin D3) 1,000 units PO DAILY [facility] Last Admin: 04/05/18 08:18 Dose: 1,000 units Diphenhydramine HCl (Benadryl) 25 mg IVPUSH Q6H PRN PRN Reason: Pruritis Docusate Sodium (Colace) 100 mg PO BID [facility] Last Admin: 04/05/18 22:40 Dose: 100 mg Famotidine (Pepcid) 20 mg PO Q12H [facility] Last Admin: 04/05/18 22:40 Dose: 20 mg Folic Acid (Folic Acid) 2 mg PO DAILY [facility] Last Admin: 04/05/18 08:18 Dose: 2 mg Latanoprost (Xalatan 0.005% Ophth Soln) 0 ml EYEBOTH BID [facility] Last Admin: 04/05/18 22:40 Dose: 1 drop Levothyroxine Sodium (Levothyroxine) 125 mcg PO ACBRK [facility] Last Admin: 04/05/18 06:06 Dose: 125 mcg Magnesium Hydroxide (Milk Of Magnesia) 30 ml PO BID PRN PRN Reason: Constipation Miscellaneous Information (Remove Patch) 1 ea TRDERM Q72H PRN PRN Reason: REMOVE Last Admin: 04/05/18 16:06 Dose: 1 ea Morphine Sulfate (Morphine) 2 mg IVPUSH Q2H PRN PRN Reason: Breakthrough Pain Naloxone HCl (Narcan) 0.1 mg IVPUSH Q5M PRN PRN Reason: Oversedation Nitrofurantoin Macrocrystals (Macrobid) 100 mg PO TID [facility] Ondansetron HCl (Zofran) 4 mg IVPUSH Q6H PRN PRN Reason: Nausea/Vomiting Last Admin: 04/05/18 09:38 Dose: 4 mg Ondansetron HCl (Zofran) 4 mg IVPUSH ONETIME PRN PRN Reason: Nausea/Vomiting Oxycodone/Acetaminophen (Percocet 325-5 Mg) 1 - 2 tab PO Q4H PRN PRN Reason: Pain Last Admin: 04/06/18 00:57 Dose: 1 tab Rivaroxaban (Xarelto) 10 mg PO DAILY [facility] Last Admin: 04/05/18 08:18 Dose: 10 mg Senna (Senna) 8.6 mg PO BID PRN PRN Reason: Constipation Simvastatin (Zocor) 10 mg PO DAILY [facility] Last Admin: 04/05/18 08:18 Dose: 10 mg Sodium Chloride (Saline Flush) 10 ml FLUSH ASDIRECTED PRN PRN Reason: Keep Vein Open Discontinued Medications Acetaminophen (Tylenol) 975 mg PO ONETIME [facility] Last Admin: 04/04/18 07:01 Dose: 975 mg Bupivacaine HCl (Marcaine 0.25%) Confirm Administered Dose 30 ml .ROUTE .STK- MED ONE Stop: 04/04/18 06:08 Last Admin: 04/04/18 08:12 Dose: 30 ml Bupivacaine HCl (Sensorcaine-Mpf 0.75%) Confirm Administered Dose 30 ml .ROUTE .STK-MED ONE Stop: 04/04/18 06:28 Cefazolin Sodium (Ancef) Confirm Administered Dose 2 gm .ROUTE .STK-MED ONE Stop: 04/04/18 06:08 Last Admin: 04/04/18 08:09 Dose: 2 gm Cefazolin Sodium (Ancef) Confirm Administered Dose 2 gm .ROUTE .STK-MED ONE Stop: 04/04/18 06:26 Morphine Sulfate 8 mg/Epinephrine HCl 0.3 mg/Cefuroxime Sodium 750 mg/Ketorolac Tromethamine 30 mg/Sodium Chloride 27.9 ml 0 mg .XX ONETIME ONE Stop: 04/04/18 06:38 Last Admin: 04/04/18 10:30 Dose: Not Given Epinephrine HCl (Adrenalin) Confirm Administered Dose 1 mg .ROUTE .STK-MED ONE Stop: 04/04/18 06:38 Fentanyl (Sublimaze) Confirm Administered Dose 100 mcg .ROUTE .STK-MED ONE Stop: 04/04/18 06:23 Fentanyl (Sublimaze) 50 mcg IVPUSH Q5M PRN PRN Reason: Pain Furosemide (Lasix) 20 mg IVPUSH NOW ONE Stop: 04/05/18 13:02 Last Admin: 04/05/18 13:05 Dose: 20 mg Lactated Ringer's (Ringers, Lactated) 1,000 mls @ 125 mls/hr IV ASDIRECTED [facility] Last Admin: 04/04/18 06:20 Dose: 125 mls/hr Cefazolin Sodium/Dextrose 2 gm (/ Premix) 50 mls @ 100 mls/hr IV Q8H [facility] Stop: 04/04/18 23:29 Last Admin: 04/04/18 10:45 Dose: Not Given Cefazolin Sodium/Dextrose 2 gm (/ Premix) 50 mls @ 100 mls/hr IV Q8H [facility] Stop: 04/05/18 06:59 Last Admin: 04/05/18 06:06 Dose: 100 mls/hr Iodine (Iodine 2% Mild Tincture) Confirm Administered Dose 30 ml .ROUTE .STK- MED ONE Stop: 04/04/18 06:08 Last Admin: 04/04/18 08:05 Dose: 18 ml Ketorolac Tromethamine (Toradol) Confirm Administered Dose 30 mg .ROUTE .STK- MED ONE Stop: 04/04/18 08:39 Lidocaine/Sodium Bicarbonate (Buffered Lidocaine 1% In Ns 8.4%) 0.25 ml IDERM ONETIME PRN PRN Reason: Prior to IV Start Last Admin: 04/04/18 06:19 Dose: 0.25 ml Meperidine HCl (Demerol) 12.5 mg IVPUSH ONETIME PRN PRN Reason: Shivering Nitrofurantoin Macrocrystals (Macrobid) 100 mg PO ONETIME ONE Stop: 04/05/18 23:31 Last Admin: 04/05/18 23:39 Dose: 100 mg Ondansetron HCl (Zofran) Confirm Administered Dose 4 mg .ROUTE .STK-MED ONE Stop: 04/04/18 08:32 Oxycodone HCl (Oxycontin) 10 mg PO ONETIME [facility] Last Admin: 04/04/18 07:01 Dose: 10 mg Pregabalin (Lyrica) 50 mg PO ONETIME [facility] Last Admin: 04/04/18 07:01 Dose: 50 mg Propofol (Diprivan 20 Ml) Confirm Administered Dose 400 mg .ROUTE .STK-MED ONE Stop: 04/04/18 06:23 Ropivacaine (Naropin 0.5%) Confirm Administered Dose 30 ml .ROUTE .STK-MED ONE Stop: 04/04/18 06:38 Scopolamine (Transderm-Scop) 1.5 mg TRDERM Q72H PRN PRN Reason: Nausea/Vomiting Last Admin: 04/05/18 10:28 Dose: 1.5 mg Tranexamic Acid (Cyklokapron) Confirm Administered Dose 1,000 mg .ROUTE .STK- MED ONE Stop: 04/04/18 06:08 Last Admin: 04/04/18 08:18 Dose: 1,000 mg Vancomycin HCl (Vancomycin) Confirm Administered Dose 1 gm .ROUTE .STK-MED ONE Stop: 04/04/18 06:08 Last Admin: 04/04/18 08:14 Dose: 1 gm - Exam Quality Assessment: DVT Prophylaxis General: Alert, Oriented, Cooperative, No Acute Distress HEENT: Pupils Equal, Pupils Reactive, EOMI, Mucous Membr. Moist/[place] Neck: Supple, Trachea Midline, No JVD Lungs: Clear to Auscultation, Normal Respiratory Effort Cardiovascular: Regular Rate, Regular Rhythm GI/Abdominal Exam: Normal Bowel Sounds, Soft, Non-Tender, No Distention (Female) Exam: Deferred Back Exam: Normal Inspection, Full Range of Motion Extremities: No Pedal Edema, Normal Capillary Refill, Leg Pain, Limited Range of Motion, Other (Bandage on left leg. Cooling pack in place. ) Peripheral Pulses: 2+: Radial (L), Radial (R), Posterior Tibial (L), Posterior Tibial (R), Dorsalis Pedis (L), Dorsalis Pedis (R) Skin: Warm, Dry, Intact Wound/Incisions: Dressing Dry and Intact, No Drainage Neurological: No New Focal Deficit Psy/Mental Status: Alert, Normal Affect, Normal Mood Consult PN Assessment/Plan POD#: 2 Procedures: Procedures DXA BONE DENSITY AXIAL (02/06/16) EMERGENCY DEPT VISIT (10/02/15) (1) S/P total knee arthroplasty SNOMED Code(s): 9941520942774, 844986254, 5958893415091 Code(s): Z96.659 - PRESENCE OF UNSPECIFIED ARTIFICIAL KNEE JOINT Priority: High Current Visit: Yes Qualifiers: Laterality: left Qualified Code(s): Z96.652 - Presence of left artificial knee joint (2) Osteoarthritis SNOMED Code(s): 013369502 Code(s): M19.90 - UNSPECIFIED OSTEOARTHRITIS, UNSPECIFIED SITE Priority: High Current Visit: Yes Qualifiers: Osteoarthritis location: knee Osteoarthritis type: primary Laterality: left Qualified Code(s): M17.12 - Unilateral primary osteoarthritis, left knee (3) HLD (hyperlipidemia) SNOMED Code(s): 54140323 Code(s): E78.5 - HYPERLIPIDEMIA, UNSPECIFIED Priority: Medium Current Visit: No Qualifiers: Hyperlipidemia type: unspecified Qualified Code(s): E78.5 - Hyperlipidemia , unspecified (4) HTN (hypertension) SNOMED Code(s): 14433633 Code(s): I10 - ESSENTIAL (PRIMARY) HYPERTENSION Priority: Medium Current Visit: No Qualifiers: Hypertension type: unspecified Qualified Code(s): I10 - Essential (primary ) hypertension (5) Hypothyroidism SNOMED Code(s): 16178326 Code(s): E03.9 - HYPOTHYROIDISM, UNSPECIFIED Priority: Medium Current Visit: No Qualifiers: Hypothyroidism type: unspecified Qualified Code(s): E03.9 - Hypothyroidism , unspecified (6) H/O Clostridium difficile infection SNOMED Code(s): 965975398, 582599322 Code(s): Z86.19 - PERSONAL HISTORY OF OTHER INFECTIOUS AND PARASITIC DISEASES Priority: Medium Current Visit: No (7) History of venous thromboembolism SNOMED Code(s): 875808517 Code(s): Z86.718 - PERSONAL HISTORY OF OTHER VENOUS THROMBOSIS AND EMBOLISM Priority: Medium Current Visit: No (8) Nausea & vomiting SNOMED Code(s): 05283957 Code(s): R11.2 - NAUSEA WITH VOMITING, UNSPECIFIED Priority: Medium Current Visit: Yes Qualifiers: Vomiting type: unspecified Vomiting Intractability: unspecified Qualified Code(s): R11.2 - Nausea with vomiting, unspecified (9) Postoperative urinary retention SNOMED Code(s): 067807110 Code(s): N99.89 - OTH POSTPROCEDURAL COMPLICATIONS AND DISORDERS OF SYS; R33.8 - OTHER RETENTION OF URINE Priority: High Current Visit: Yes Problem List Initiated/Reviewed/Updated: Yes Plan: I/P: Acute: S/P left total knee arthroplasty - post-operative day 2 -DVT prophylaxis and pain management per primary care team -PT/OT -IS/RT -Monitor oxygen saturation -Titrate oxygen as needed -Vital signs stable -Monitor labs -Pre-operative Hgb was 14.7, now 12.7 -Preo-operative GFR was 68, now 60 Osteoarthritis of left knee -Pain management per primary care team Urinary retention -Has had minimal output since surgery ("only drops") -Nursing reports almost 1L PO intake -20mg lasix given -Patient reports feeling uncomfortable -Nursing to straight cath patient per protocol -Goldsmith now in place with good output Resolved: Nausea and vomiting -Resolved with scopolamine patch and zofran -Home zofran Rx Confusion -Nursing reported severe confusion last night (04/05/18) -Started shortly after given pain medications -Questionable underlying baseline dementia/confusion -Primary team and PT note history of asking questions multiple times -Improved/resolved today - PT noting baseline as well -Discussed with primary team - will change up pain medication regimen -Primary team started on Macrobid for urinary prophylaxis Chronic: HLD HTN Hypothyroid Phlebitis with DVT in 2014 Hx/o C. 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 Her PCP is Dr Dandre Sibley Thank you for allowing us to participate in the care of this patient!! Overall Pam is doing quite well, although she has had some urinary retention and a goldsmith was placed. She has had good output since. She has been working with PT/OT. Vital signs look good. She has been ambulating. Pain is controlled. She will be cleared for discharge today with goldsmith catheter and will need to follow-up with primary care provider and possibly urology. Appointment with PCP has been made by nursing for tomorrow.
[2018-04-06] MEDS: Levothyroxine 125 MCG Tab PO SCH (06:25)
[2018-04-06] MEDS: Famotidine 20 MG Tab PO SCH (06:25)
[2018-04-06] MEDS: Rivaroxaban 10 MG Tab PO SCH (08:42)
[2018-04-06] MEDS: Folic Acid 1 MG Tab PO SCH (08:42)
[2018-04-06] MEDS: Acetaminophen 325 MG Tab PO PRN (08:42)
[2018-04-06] MEDS: Cholecalciferol (Vitamin D3) 1,000 Unit Tab PO SCH (08:43)
[2018-04-06] MEDS: Simvastatin 10 MG Tab PO SCH (08:43)
[2018-04-06] MEDS: LATANOPROST 0.005% EYEBOTH SCH (08:43)
[2018-04-06] MEDS: Docusate Sodium 100 MG Cap PO SCH (08:43)
[2018-04-06] MEDS ORDERED: Nitrofurantoin Monohydrate/Macrocrystalline 100 MG Cap PO SCH (09:00)
--- NOTE | 2018-04-06 09:28 | PCM.SURGPN ---
- General Info Date of Service: 04/06/18 POD#: 2 Functional Status: Reports: Pain Controlled, Tolerating Diet, Ambulating, Incentive Spirometry, Other (The pt's daughter was uncomfortable with discharge to home yesterday due to urinary retention and post-operative confusion.) - Patient Data Vitals - Most Recent: Last Vital Signs Temp 99.7 F 04/06/18 08:00 Pulse 76 04/06/18 08:00 Resp 16 04/06/18 08:00 BP 135/71 04/06/18 08:00 Pulse Ox 92 L 04/06/18 08:00 Weight - Most Recent: 177 lb I&O - Last 24 Hours: Intake & Output 04/05/18 04/06/18 04/06/18 22:59 06:59 14:59 Intake Total 2700 700 Output Total 2635 1650 Balance 65 -950 Med Orders - Current: Current Medications Acetaminophen (Tylenol) 650 mg PO Q4H PRN PRN Reason: pain Last Admin: 04/06/18 08:42 Dose: 650 mg Bisacodyl (Dulcolax) 5 mg PO DAILY PRN PRN Reason: Constipation Cholecalciferol (Vitamin D3) 1,000 units PO DAILY [facility] Last Admin: 04/06/18 08:43 Dose: 1,000 units Diphenhydramine HCl (Benadryl) 25 mg IVPUSH Q6H PRN PRN Reason: Pruritis Docusate Sodium (Colace) 100 mg PO BID [facility] Last Admin: 04/06/18 08:43 Dose: 100 mg Famotidine (Pepcid) 20 mg PO Q12H [facility] Last Admin: 04/06/18 06:25 Dose: 20 mg Folic Acid (Folic Acid) 2 mg PO DAILY [facility] Last Admin: 04/06/18 08:42 Dose: 2 mg Latanoprost (Xalatan 0.005% Ophth Soln) 0 ml EYEBOTH BID [facility] Last Admin: 04/06/18 08:43 Dose: 1 drop Levothyroxine Sodium (Levothyroxine) 125 mcg PO ACBRK [facility] Last Admin: 04/06/18 06:25 Dose: 125 mcg Magnesium Hydroxide (Milk Of Magnesia) 30 ml PO BID PRN PRN Reason: Constipation Miscellaneous Information (Remove Patch) 1 ea TRDERM Q72H PRN PRN Reason: REMOVE Last Admin: 04/05/18 16:06 Dose: 1 ea Morphine Sulfate (Morphine) 2 mg IVPUSH Q2H PRN PRN Reason: Breakthrough Pain Naloxone HCl (Narcan) 0.1 mg IVPUSH Q5M PRN PRN Reason: Oversedation Nitrofurantoin Macrocrystals (Macrobid) 100 mg PO BID [facility] Last Admin: 04/06/18 08:44 Dose: 100 mg Ondansetron HCl (Zofran) 4 mg IVPUSH Q6H PRN PRN Reason: Nausea/Vomiting Last Admin: 04/05/18 09:38 Dose: 4 mg Ondansetron HCl (Zofran) 4 mg IVPUSH ONETIME PRN PRN Reason: Nausea/Vomiting Oxycodone/Acetaminophen (Percocet 325-5 Mg) 1 - 2 tab PO Q4H PRN PRN Reason: Pain Last Admin: 04/06/18 00:57 Dose: 1 tab Rivaroxaban (Xarelto) 10 mg PO DAILY [facility] Last Admin: 04/06/18 08:42 Dose: 10 mg Senna (Senna) 8.6 mg PO BID PRN PRN Reason: Constipation Simvastatin (Zocor) 10 mg PO DAILY [facility] Last Admin: 04/06/18 08:43 Dose: 10 mg Sodium Chloride (Saline Flush) 10 ml FLUSH ASDIRECTED PRN PRN Reason: Keep Vein Open Discontinued Medications Acetaminophen (Tylenol) 975 mg PO ONETIME [facility] Last Admin: 04/04/18 07:01 Dose: 975 mg Bupivacaine HCl (Marcaine 0.25%) Confirm Administered Dose 30 ml .ROUTE .STK- MED ONE Stop: 04/04/18 06:08 Last Admin: 04/04/18 08:12 Dose: 30 ml Bupivacaine HCl (Sensorcaine-Mpf 0.75%) Confirm Administered Dose 30 ml .ROUTE .STK-MED ONE Stop: 04/04/18 06:28 Cefazolin Sodium (Ancef) Confirm Administered Dose 2 gm .ROUTE .STK-MED ONE Stop: 04/04/18 06:08 Last Admin: 04/04/18 08:09 Dose: 2 gm Cefazolin Sodium (Ancef) Confirm Administered Dose 2 gm .ROUTE .STK-MED ONE Stop: 04/04/18 06:26 Morphine Sulfate 8 mg/Epinephrine HCl 0.3 mg/Cefuroxime Sodium 750 mg/Ketorolac Tromethamine 30 mg/Sodium Chloride 27.9 ml 0 mg .XX ONETIME ONE Stop: 04/04/18 06:38 Last Admin: 04/04/18 10:30 Dose: Not Given Epinephrine HCl (Adrenalin) Confirm Administered Dose 1 mg .ROUTE .STK-MED ONE Stop: 04/04/18 06:38 Fentanyl (Sublimaze) Confirm Administered Dose 100 mcg .ROUTE .STK-MED ONE Stop: 04/04/18 06:23 Fentanyl (Sublimaze) 50 mcg IVPUSH Q5M PRN PRN Reason: Pain Furosemide (Lasix) 20 mg IVPUSH NOW ONE Stop: 04/05/18 13:02 Last Admin: 04/05/18 13:05 Dose: 20 mg Lactated Ringer's (Ringers, Lactated) 1,000 mls @ 125 mls/hr IV ASDIRECTED [facility] Last Admin: 04/04/18 06:20 Dose: 125 mls/hr Cefazolin Sodium/Dextrose 2 gm (/ Premix) 50 mls @ 100 mls/hr IV Q8H [facility] Stop: 04/04/18 23:29 Last Admin: 04/04/18 10:45 Dose: Not Given Cefazolin Sodium/Dextrose 2 gm (/ Premix) 50 mls @ 100 mls/hr IV Q8H [facility] Stop: 04/05/18 06:59 Last Admin: 04/05/18 06:06 Dose: 100 mls/hr Iodine (Iodine 2% Mild Tincture) Confirm Administered Dose 30 ml .ROUTE .STK- MED ONE Stop: 04/04/18 06:08 Last Admin: 04/04/18 08:05 Dose: 18 ml Ketorolac Tromethamine (Toradol) Confirm Administered Dose 30 mg .ROUTE .STK- MED ONE Stop: 04/04/18 08:39 Lidocaine/Sodium Bicarbonate (Buffered Lidocaine 1% In Ns 8.4%) 0.25 ml IDERM ONETIME PRN PRN Reason: Prior to IV Start Last Admin: 04/04/18 06:19 Dose: 0.25 ml Meperidine HCl (Demerol) 12.5 mg IVPUSH ONETIME PRN PRN Reason: Shivering Nitrofurantoin Macrocrystals (Macrobid) 100 mg PO ONETIME ONE Stop: 04/05/18 23:31 Last Admin: 04/05/18 23:39 Dose: 100 mg Ondansetron HCl (Zofran) Confirm Administered Dose 4 mg .ROUTE .STK-MED ONE Stop: 04/04/18 08:32 Oxycodone HCl (Oxycontin) 10 mg PO ONETIME [facility] Last Admin: 04/04/18 07:01 Dose: 10 mg Oxycodone/Acetaminophen (Percocet 325-5 Mg) Confirm Administered Dose 2 tab .ROUTE .STK-MED ONE Stop: 04/05/18 16:17 Pregabalin (Lyrica) 50 mg PO ONETIME [facility] Last Admin: 04/04/18 07:01 Dose: 50 mg Propofol (Diprivan 20 Ml) Confirm Administered Dose 400 mg .ROUTE .STK-MED ONE Stop: 04/04/18 06:23 Ropivacaine (Naropin 0.5%) Confirm Administered Dose 30 ml .ROUTE .STK-MED ONE Stop: 04/04/18 06:38 Scopolamine (Transderm-Scop) 1.5 mg TRDERM Q72H PRN PRN Reason: Nausea/Vomiting Last Admin: 04/05/18 10:28 Dose: 1.5 mg Tranexamic Acid (Cyklokapron) Confirm Administered Dose 1,000 mg .ROUTE .STK- MED ONE Stop: 04/04/18 06:08 Last Admin: 04/04/18 08:18 Dose: 1,000 mg Vancomycin HCl (Vancomycin) Confirm Administered Dose 1 gm .ROUTE .STK-MED ONE Stop: 04/04/18 06:08 Last Admin: 04/04/18 08:14 Dose: 1 gm - Exam Wound/Incisions: Dressing Dry and Intact General: Alert, Cooperative, Other (Oriented to place.) Extremities: Other (Left knee tender. NVS intact for LLE.) - Problem List Review Problem List Initiated/Reviewed/Updated: Yes - My Orders Last 24 Hours: Active Orders 24 hr Category Date Time Status Patient Status [ADT] Routine ADT 04/05/18 19:30 Active Insert Goldsmith Catheter [Insert Urinary Catheter] [OM.PC] Care 04/05/18 19:45 Ordered Q24H Urinary Catheter Assessment [RC] ASDIRECTED Care 04/06/18 03:40 Active Acetaminophen [Tylenol] Med 04/05/18 23:39 Active 650 mg PO Q4H PRN Nitrofurantoin Carver/Macrocryst [Macrobid] Med 04/06/18 09:00 Active 100 mg PO BID Remove Patch Med 04/05/18 10:10 Active 1 ea TRDERM Q72H PRN Rivaroxaban [Xarelto] Med 04/05/18 09:00 Active 10 mg PO DAILY Medication Orders Acetaminophen (Tylenol) 650 mg PO Q4H PRN PRN Reason: pain Last Admin: 04/06/18 08:42 Dose: 650 mg Admin: 04/05/18 23:55 Dose: 650 mg Bisacodyl (Dulcolax) 5 mg PO DAILY PRN PRN Reason: Constipation Cholecalciferol (Vitamin D3) 1,000 units PO DAILY [facility] Last Admin: 04/06/18 08:43 Dose: 1,000 units Admin: 04/05/18 08:18 Dose: 1,000 units Admin: 04/04/18 10:44 Dose: 1,000 units Diphenhydramine HCl (Benadryl) 25 mg IVPUSH Q6H PRN PRN Reason: Pruritis Docusate Sodium (Colace) 100 mg PO BID [facility] Last Admin: 04/06/18 08:43 Dose: 100 mg Admin: 04/05/18 22:40 Dose: 100 mg Admin: 04/05/18 08:18 Dose: 100 mg Admin: 04/04/18 20:18 Dose: 100 mg Famotidine (Pepcid) 20 mg PO Q12H [facility] Last Admin: 04/06/18 06:25 Dose: 20 mg Admin: 04/05/18 22:40 Dose: 20 mg Admin: 04/05/18 06:06 Dose: 20 mg Admin: 04/04/18 18:30 Dose: 20 mg Admin: 04/04/18 10:45 Dose: Not Given Folic Acid (Folic Acid) 2 mg PO DAILY [facility] Last Admin: 04/06/18 08:42 Dose: 2 mg Admin: 04/05/18 08:18 Dose: 2 mg Admin: 04/04/18 10:44 Dose: 2 mg Latanoprost (Xalatan 0.005% Ophth Soln) 0 ml EYEBOTH BID [facility] Last Admin: 04/06/18 08:43 Dose: 1 drop Admin: 04/05/18 22:40 Dose: 1 drop Admin: 04/05/18 08:18 Dose: 1 drop Admin: 04/04/18 20:18 Dose: 1 drop Admin: 04/04/18 10:46 Dose: Levothyroxine Sodium (Levothyroxine) 125 mcg PO ACBRK [facility] Last Admin: 04/06/18 06:25 Dose: 125 mcg Admin: 04/05/18 06:06 Dose: 125 mcg Admin: 04/04/18 10:43 Dose: 125 mcg Magnesium Hydroxide (Milk Of Magnesia) 30 ml PO BID PRN PRN Reason: Constipation Miscellaneous Information (Remove Patch) 1 ea TRDERM Q72H PRN PRN Reason: REMOVE Last Admin: 04/05/18 16:06 Dose: 1 ea Morphine Sulfate (Morphine) 2 mg IVPUSH Q2H PRN PRN Reason: Breakthrough Pain Naloxone HCl (Narcan) 0.1 mg IVPUSH Q5M PRN PRN Reason: Oversedation Nitrofurantoin Macrocrystals (Macrobid) 100 mg PO BID [facility] Last Admin: 04/06/18 08:44 Dose: 100 mg Ondansetron HCl (Zofran) 4 mg IVPUSH Q6H PRN PRN Reason: Nausea/Vomiting Last Admin: 04/05/18 09:38 Dose: 4 mg Ondansetron HCl (Zofran) 4 mg IVPUSH ONETIME PRN PRN Reason: Nausea/Vomiting Oxycodone/Acetaminophen (Percocet 325-5 Mg) 1 - 2 tab PO Q4H PRN PRN Reason: Pain Last Admin: 04/06/18 00:57 Dose: 1 tab Admin: 04/05/18 16:21 Dose: 2 tab Admin: 04/05/18 12:07 Dose: 2 tab Admin: 04/05/18 07:47 Dose: 2 tab Admin: 04/05/18 03:41 Dose: 2 tab Admin: 04/04/18 22:39 Dose: 2 tab Admin: 04/04/18 18:30 Dose: 2 tab Admin: 04/04/18 14:42 Dose: 2 tab Rivaroxaban (Xarelto) 10 mg PO DAILY [facility] Last Admin: 04/06/18 08:42 Dose: 10 mg Admin: 04/05/18 08:18 Dose: 10 mg Senna (Senna) 8.6 mg PO BID PRN PRN Reason: Constipation Simvastatin (Zocor) 10 mg PO DAILY [facility] Last Admin: 04/06/18 08:43 Dose: 10 mg Admin: 04/05/18 08:18 Dose: 10 mg Admin: 18 10:44 Dose: 10 mg Sodium Chloride (Saline Flush) 10 ml FLUSH ASDIRECTED PRN PRN Reason: Keep Vein Open - Assessment Assessment (Free Text/Narrative):: POD#2 - left TKA - Plan Plan (Free Text/Narrative):: 1. The pt was admitted to Hospital last evening due urinary retention and confusion. Goldsmith placed and the pt will d/c with goldsmith in place. She will f/u with PCP and was placed on Marcobid at this time. 2. Xarelto, frequent mobility, TEDs for VTE prophylaxis. 3. Will trial Hyrum in place of Percocet due to confusion noted last evening with Percocet use. Query mild baseline confusion also. 4. The pt has been cleared for discharge from the Hospitalist service also. 5. Outpatient P.T. The pt's case was discussed with Dr. Peng.
[2018-04-06 12:20] VITALS: BP 127/53
--- NOTE | 2018-04-08 07:12 | PCM.DCSUM1 ---
Discharge Summary - Hospital Course Brief History: Pam is an 83 yo female who underwent left TKA with Dr. Peng on 04-04-2018. The procedure was completed with spinal anesthesia and MAC. The pt tolerated the procedure well. She received Ancef sydnie-operatively. She participated in P.T. and O.T. and progressed well. Hgb on POD#1 was 12.7. On POD#1, Xarelto was initiated for VTE prophylaxis. TEDs and SCDs were also used. Medical management was provided by the Hospitalist service and the pt's course was remarkable for urinary retention neccesitating an inpatient stay and placement of a goldsmith catheter. The pt was then placed on Macrobid. The pt was deemed appropriate for discharge to home with family on POD#2. The patient will follow-up with her PCP regarding goldsmith catheter use and will attend outpatient P.T. Diagnosis: Stroke: No - Discharge Data Discharge Date: 04/06/18 Discharge Disposition: Home, Self-Care 01 Condition: Good - Patient Summary/Data Operative Procedure(s) Performed: left total knee arthroplasty Consults: Consultations 04/04/18 06:37 OT Evaluation and Treatment [CONS] Routine PT Evaluation and Treatment [CONS] Routine 04/04/18 06:42 Consult to Physician [CONS] Routine - Patient Instructions Diet: Usual Diet as Tolerated Activity: Apply Ice, As Tolerated, Elevate Extremity, Full Weight Bearing Driving: Do Not Drive Showering/Bathing: May Shower Wound/Incision Care: Keep Operative Site/Wound Site Clean and Dry, Do NOT Change Dressing Notify Provider of: Fever, Increased Pain, Swelling and Redness, Drainage, Nausea and/or Vomiting Other/Special Instructions: Please get up and moving around every hour while awake. This helps to prevent blood clots. Please use your walker and have help with mobility as needed. Please take the Xarelto blood thinner medication daily as directed. At home, please complete the exercises that you learned during the Hospital stay. Schedule for physical therapy. Use the pain medication as needed. The medication may cause drowsiness and constipation. Contact your primary care provider for instructions if you are constipated. You may use a stool softener like docusate sodium or Colace 100mg twice daily and/or a laxative like Miralax daily for constipation. Increase your water and fiber intake while you are using the pain medication. Please try to wean from use of the pain medication as soon as able. Wear the DALE hose during the day and you may remove these at night. Elevate the limb to decrease swelling. Place ice to the area often. Place a towel between your skin and the blue pad. Use the incentive spirometer often. Take deep breaths throughout the day. Increase your protein intake while you are healing. If you have diabetes, please closely monitor your blood sugars and notify your primary care provider with abnormal values. Call the Clinic with questions or concerns - [phone]. - Discharge Plan Prescriptions/Med Rec: Acetaminophen/HYDROcodone [[place] 325-5 MG] 1 - 2 tab PO Q6H PRN #30 tablet PRN Reason: Pain Nitrofurantoin Monohyd/M-Cryst [Macrobid 100 mg Capsule] 100 mg PO BID #10 capsule Rivaroxaban [Xarelto] 10 mg PO DAILY #42 tablet Home Medications: Home Meds Cholecalciferol (Vitamin D3) [Vitamin D3] 1,000 unit PO DAILY 10/02/15 [History] Folic Acid 2 mg PO DAILY 10/02/15 [History] Latanoprost [Xalatan 0.005% Ophth Soln] 1 drop EYEBOTH BID 10/02/15 [History] Levothyroxine 125 mcg PO DAILY 10/02/15 [History] atorvaSTATin [Lipitor] 10 mg PO DAILY 10/02/15 [History] Aspirin [Halfprin] 81 mg PO DAILY 04/01/18 [History] Acetaminophen [Tylenol Extra Strength] 1,000 mg PO Q6H PRN #0 04/04/18 [Rx] Bisacodyl [Dulcolax] 5 mg PO DAILY PRN tablet 04/04/18 [Rx] Docusate Sodium [Colace] 100 mg PO BID cap 04/04/18 [Rx] Famotidine [Pepcid] 20 mg PO Q12H tablet 04/04/18 [Rx] Magnesium Hydroxide [Milk of Magnesia] 30 ml PO BID PRN cup 04/04/18 [Rx] Rivaroxaban [Xarelto] 10 mg PO DAILY #42 tablet 04/04/18 [Rx] Sennosides [Senna] 8.6 mg PO BID PRN tablet 04/04/18 [Rx] Ondansetron [Ondansetron ODT] 4 mg PO Q6HR PRN 06/12/18 [History] Acetaminophen/HYDROcodone [[place] 325-5 MG] 1 - 2 tab PO Q6H PRN #30 tablet 04/06 [Rx] Nitrofurantoin Monohyd/M-Cryst [Macrobid 100 mg Capsule] 100 mg PO BID #10 capsule 04/06/18 [Rx] Patient Handouts: Indwelling Urinary Catheter Care, Adult, [id number], Total Knee Replacement Referrals: Dandre Sibley MD [Primary Care Provider] - 04/07/18 7:40 am (Please follow up with Dr. Sibley on April 07 at 0740, please arrive no later than 0715 for check in.) Hien Sosa PA-C [Physician Contract Processor] - (Please follow up with Hien Sosa on 04/12/18 at 0945, and a second on 04/19/18 at 1130.) - Patient Data Vitals - Most Recent: Last Vital Signs Temp 98.6 F 04/06/18 12:13 Pulse 69 04/06/18 12:13 Resp 16 04/06/18 12:13 BP 127/53 L 04/06/18 12:13 Pulse Ox 95 04/06/18 12:13 Weight - Most Recent: 177 lb Med Orders - Current: Current Medications Discontinued Medications Acetaminophen (Tylenol) 975 mg PO ONETIME [facility] Last Admin: 04/04/18 07:01 Dose: 975 mg Acetaminophen (Tylenol) 650 mg PO Q4H PRN PRN Reason: pain Last Admin: 04/06/18 08:42 Dose: 650 mg Bisacodyl (Dulcolax) 5 mg PO DAILY PRN PRN Reason: Constipation Bupivacaine HCl (Marcaine 0.25%) Confirm Administered Dose 30 ml .ROUTE .STK- MED ONE Stop: 04/04/18 06:08 Last Admin: 04/04/18 08:12 Dose: 30 ml Bupivacaine HCl (Sensorcaine-Mpf 0.75%) Confirm Administered Dose 30 ml .ROUTE .STK-MED ONE Stop: 04/04/18 06:28 Cefazolin Sodium (Ancef) Confirm Administered Dose 2 gm .ROUTE .STK-MED ONE Stop: 04/04/18 06:08 Last Admin: 04/04/18 08:09 Dose: 2 gm Cefazolin Sodium (Ancef) Confirm Administered Dose 2 gm .ROUTE .STK-MED ONE Stop: 04/04/18 06:26 Cholecalciferol (Vitamin D3) 1,000 units PO DAILY [facility] Last Admin: 04/06/18 08:43 Dose: 1,000 units Morphine Sulfate 8 mg/Epinephrine HCl 0.3 mg/Cefuroxime Sodium 750 mg/Ketorolac Tromethamine 30 mg/Sodium Chloride 27.9 ml 0 mg .XX ONETIME ONE Stop: 04/04/18 06:38 Last Admin: 04/04/18 10:30 Dose: Not Given Diphenhydramine HCl (Benadryl) 25 mg IVPUSH Q6H PRN PRN Reason: Pruritis Docusate Sodium (Colace) 100 mg PO BID [facility] Last Admin: 04/06/18 08:43 Dose: 100 mg Epinephrine HCl (Adrenalin) Confirm Administered Dose 1 mg .ROUTE .STK-MED ONE Stop: 04/04/18 06:38 Famotidine (Pepcid) 20 mg PO Q12H [facility] Last Admin: 04/06/18 06:25 Dose: 20 mg Fentanyl (Sublimaze) Confirm Administered Dose 100 mcg .ROUTE .STK-MED ONE Stop: 04/04/18 06:23 Fentanyl (Sublimaze) 50 mcg IVPUSH Q5M PRN PRN Reason: Pain Folic Acid (Folic Acid) 2 mg PO DAILY [facility] Last Admin: 04/06/18 08:42 Dose: 2 mg Furosemide (Lasix) 20 mg IVPUSH NOW ONE Stop: 04/05/18 13:02 Last Admin: 04/05/18 13:05 Dose: 20 mg Lactated Ringer's (Ringers, Lactated) 1,000 mls @ 125 mls/hr IV ASDIRECTED [facility] Last Admin: 04/04/18 06:20 Dose: 125 mls/hr Cefazolin Sodium/Dextrose 2 gm (/ Premix) 50 mls @ 100 mls/hr IV Q8H [facility] Stop: 04/04/18 23:29 Last Admin: 04/04/18 10:45 Dose: Not Given Cefazolin Sodium/Dextrose 2 gm (/ Premix) 50 mls @ 100 mls/hr IV Q8H [facility] Stop: 04/05/18 06:59 Last Admin: 04/05/18 06:06 Dose: 100 mls/hr Iodine (Iodine 2% Mild Tincture) Confirm Administered Dose 30 ml .ROUTE .STK- MED ONE Stop: 04/04/18 06:08 Last Admin: 04/04/18 08:05 Dose: 18 ml Ketorolac Tromethamine (Toradol) Confirm Administered Dose 30 mg .ROUTE .STK- MED ONE Stop: 04/04/18 08:39 Latanoprost (Xalatan 0.005% Ophth Soln) 0 ml EYEBOTH BID [facility] Last Admin: 04/06/18 08:43 Dose: 1 drop Levothyroxine Sodium (Levothyroxine) 125 mcg PO ACBRK [facility] Last Admin: 04/06/18 06:25 Dose: 125 mcg Lidocaine/Sodium Bicarbonate (Buffered Lidocaine 1% In Ns 8.4%) 0.25 ml IDERM ONETIME PRN PRN Reason: Prior to IV Start Last Admin: 04/04/18 06:19 Dose: 0.25 ml Magnesium Hydroxide (Milk Of Magnesia) 30 ml PO BID PRN PRN Reason: Constipation Meperidine HCl (Demerol) 12.5 mg IVPUSH ONETIME PRN PRN Reason: Shivering Miscellaneous Information (Remove Patch) 1 ea TRDERM Q72H PRN PRN Reason: REMOVE Last Admin: 04/05/18 16:06 Dose: 1 ea Morphine Sulfate (Morphine) 2 mg IVPUSH Q2H PRN PRN Reason: Breakthrough Pain Naloxone HCl (Narcan) 0.1 mg IVPUSH Q5M PRN PRN Reason: Oversedation Nitrofurantoin Macrocrystals (Macrobid) 100 mg PO BID [facility] Last Admin: 04/06/18 08:44 Dose: 100 mg Nitrofurantoin Macrocrystals (Macrobid) 100 mg PO ONETIME ONE Stop: 04/05/18 23:31 Last Admin: 04/05/18 23:39 Dose: 100 mg Ondansetron HCl (Zofran) 4 mg IVPUSH Q6H PRN PRN Reason: Nausea/Vomiting Last Admin: 04/05/18 09:38 Dose: 4 mg Ondansetron HCl (Zofran) 4 mg IVPUSH ONETIME PRN PRN Reason: Nausea/Vomiting Ondansetron HCl (Zofran) Confirm Administered Dose 4 mg .ROUTE .STK-MED ONE Stop: 04/04/18 08:32 Oxycodone HCl (Oxycontin) 10 mg PO ONETIME [facility] Last Admin: 04/04/18 07:01 Dose: 10 mg Oxycodone/Acetaminophen (Percocet 325-5 Mg) 1 - 2 tab PO Q4H PRN PRN Reason: Pain Last Admin: 04/06/18 11:52 Dose: 1 tab Oxycodone/Acetaminophen (Percocet 325-5 Mg) Confirm Administered Dose 2 tab .ROUTE .STK-MED ONE Stop: 04/05/18 16:17 Pregabalin (Lyrica) 50 mg PO ONETIME [facility] Last Admin: 04/04/18 07:01 Dose: 50 mg Propofol (Diprivan 20 Ml) Confirm Administered Dose 400 mg .ROUTE .STK-MED ONE Stop: 04/04/18 06:23 Rivaroxaban (Xarelto) 10 mg PO DAILY [facility] Last Admin: 04/06/18 08:42 Dose: 10 mg Ropivacaine (Naropin 0.5%) Confirm Administered Dose 30 ml .ROUTE .STK-MED ONE Stop: 04/04/18 06:38 Scopolamine (Transderm-Scop) 1.5 mg TRDERM Q72H PRN PRN Reason: Nausea/Vomiting Last Admin: 04/05/18 10:28 Dose: 1.5 mg Senna (Senna) 8.6 mg PO BID PRN PRN Reason: Constipation Simvastatin (Zocor) 10 mg PO DAILY [facility] Last Admin: 04/06/18 08:43 Dose: 10 mg Sodium Chloride (Saline Flush) 10 ml FLUSH ASDIRECTED PRN PRN Reason: Keep Vein Open Tranexamic Acid (Cyklokapron) Confirm Administered Dose 1,000 mg .ROUTE .STK- MED ONE Stop: 04/04/18 06:08 Last Admin: 04/04/18 08:18 Dose: 1,000 mg Vancomycin HCl (Vancomycin) Confirm Administered Dose 1 gm .ROUTE .STK-MED ONE Stop: 04/04/18 06:08 Last Admin: 04/04/18 08:14 Dose: 1 gm
== END 2018-04-06 13:35 | disposition home or self-care (01) | DRG 470 ==
LOC: JD.SDS 06:00 → JD.MS 06:05 → JD.SDS 04-05 19:30
PROVIDERS: ADMIT Orthopaedic Surgery; ATTEND Orthopaedic Surgery
PROC: 0SRD0J9 Replacement of Left Knee Joint with Synthetic Substitute, Cemented, Open Approach (ICD-10-PCS; principal; 2018-04-04)
PROC: 3E0T3BZ Introduction of Anesthetic Agent into Peripheral Nerves and Plexi, Percutaneous Approach (ICD-10-PCS; 2018-04-04)
DX: M17.12 Unilateral primary osteoarthritis, left knee (principal); M25.762 Osteophyte, left knee; I10 Essential (primary) hypertension; H91.90 Unspecified hearing loss, unspecified ear; E78.00 Pure hypercholesterolemia, unspecified; E78.2 Mixed hyperlipidemia; K22.8 Other specified diseases of esophagus; G89.29 Other chronic pain; N23 Unspecified renal colic; E03.9 Hypothyroidism, unspecified; R11.2 Nausea with vomiting, unspecified; R33.9 Retention of urine, unspecified; R41.0 Disorientation, unspecified; Z90.710 Acquired absence of both cervix and uterus; Z87.891 Personal history of nicotine dependence; Z98.1 Arthrodesis status; Z88.1 Allergy status to other antibiotic agents; Z88.2 Allergy status to sulfonamides; Z86.718 Personal history of other venous thrombosis and embolism; Z88.8 Allergy status to other drugs, medicaments and biological substances; Z79.82 Long term (current) use of aspirin; Z79.899 Other long term (current) drug therapy
CPT/HCPCS: 27447; 36415 ×2; 51701 ×2; 51798 ×4; 64447; 73560; 80053; 85027; 85610; 87641; 97110 ×2; 97116 ×3; 97161; 97165; 97530; 97535 ×2; A9270 ×26; C1713; C1776 ×4; J0171 ×2; J0690 ×5; J0697; J1885 ×2; J2270; J2405 ×2; J2795; J3010; J3370; J3490; J7120; 01402; 51702; 64450; J2704